=== PATIENT | female | born 1955 | race Caucasian/White ===

== ENCOUNTER 2024-04-06 10:02 | Emergency (ER) | payer MEDICARE, OTHER, SELFPAY ==
[2024-04-06 10:27] VITALS: BMI 32.6
[2024-04-06 10:31] VITALS: BP 114/48
--- NOTE | 2024-04-06 10:39 | ED.MUSCINJ ---
HPI-Injury
General
Chief Complaint: Fall
Time Seen by Provider: 04/06/24 10:23
History of Present Illness-Injury
Initial Injury comments:
Patient presents to the emergency department with left elbow pain and left hand abrasion after fall. She had a mechanical fall where she tripped on the curb and landed onto an outstretched left arm. Complains of pain in the left elbow as well as
scrapes to her left hand. Denies any numbness or tingling in the hand or arm. Denies any pain in shoulder, clavicle. Denies any head strike or loss of consciousness.
Past History
Past History
ED Past Medical History: Other (hypothyroid )
Social History
Tobacco: Non-smoker
Personal:
Living: with family
Employment: Employed
Phy Exam
Physical Exam
Physical Exam:
General: No acute distress
Head: NCAT
Neck, Normal in appearance, no swelling
Respiratory: No Respiratory distress
Abdomen: No distension
Ext: Tenderness throughout left elbow, limited range of motion, no gross deformity. No skin breakdown. She has superficial abrasions to the left hand but no bony tenderness.. Full range of motion of wrist and extremity without pain.
Neuro: BLAIR, AOx4
Psych: Normal affect
Skin: Normal color
Injury Course
Orders/Labs/Results
Orders:
Orders
04/06/24 10:37
Acetaminophen [Tylenol] 1,000 mg PO NOW STA
Oxycodone [Roxicodone] 5 mg PO NOW STA
CR Elbow - Left Min 2 View Urgent
Reason For Exam: trauma
04/06/24 10:38
Ondansetron Injectable [Zofran] 4 mg IV NOW STA
04/06/24 11:24
Sling [Braces/Immobilizers] As Directed
Type of Brace/Immobilizer: Sling
Location for Brace/Immobilizer: L arm
04/06/24 14:06
Oxycodone [Roxicodone] 5 mg PO NOW STA
04/06/24 16:00
Bacitracin Zinc [Bacitracin Ointment] See Dose Instructions TOPICAL TID
*Critical Care Note
Total Time (30-74mins, 75-104mins- exclusive of procedures): Not Applicable
ED Attending Note
-
Portions of this chart may have been created with voice recognition software.� Occasional wrong word or��sound alike� substitutions may have occurred due to the inherent limitations of voice recognition software.
Discharge Plan
Departure
Patient Disposition: Home (Routine Discharge)
Date of Disposition: 04/06/24
Time of Disposition: 14:06
Patient with high blood pressure during this ER visit?: No
Discharge Problem:
Closed fracture of radial head
Instructions: Elbow Fracture, Adult ED
Prescriptions:
New
oxycodone 5 mg capsule
5 mg PO BID PRN (Reason: Pain) Qty: 7 0RF
No Action
levothyroxine 100 MCG tablet
1 tab PO DAILY
Referrals:
Dwayne Lane MD [Active] - (radial head fracture)
Barbara Bergeron CRNP [Family Provider] -
Activity Restrictions/Additional Instructions:
Please follow-up with the orthopedist in the next few days. Keep the sling on until your visit. Ice and elevate the elbow. Ibuprofen and Tylenol for pain control. Use the oxycodone only as needed if the ibuprofen and Tylenol are not working
Interventions
Interventions:
*Risk Screen - Suicide Last Done: 04/06/24 10:27
*General Assessment Last Done: 04/06/24 10:27
*Neglect/Abuse Screening Last Done: 04/06/24 10:27
ED- Fall Risk Assessment Last Done: 04/06/24 10:27
*ED COVID-19 Vaccine History Last Done: 04/06/24 10:27
*Nursing Disposition Last Done: 04/06/24 14:32
ED-Musculoskeletal Assessment Last Done: 04/06/24 10:27
ED- Neurological Assessment Last Done: 04/06/24 10:27
ED-Skin Assessment Last Done: 04/06/24 10:27
Discharge Date and Time
Discharge Date/Time: 04/06/24 14:33
Print Language: OCCITAN
[2024-04-06] MEDS: ZOFRAN 4 MG IV (10:43)
[2024-04-06] MEDS: TYLENOL 1000 MG PO (10:43)
[2024-04-06] MEDS: ROXICODONE 5 MG PO ×2 (10:44→14:08)
[2024-04-06 14:13] VITALS: BP 144/78
== END 2024-04-06 14:33 | disposition home or self-care (01) ==
LOC: EMR 10:02
PROVIDERS: EMERGENCY PHYSICIAN Emergency Medicine; FAMILY PHYSICIAN Nurse Practitioner Adult Health
DX: S60.512A Abrasion of left hand, initial encounter (principal); S52.122A Displaced fracture of head of left radius, initial encounter for closed fracture; W01.0XXA Fall on same level from slipping, tripping and stumbling without subsequent striking against object, initial encounter
CPT/HCPCS: 99284; 96374; 73070

== ENCOUNTER → 2024-04-08 09:02 | Outpatient (REF) | payer MEDICARE, OTHER, SELFPAY | LOC: RAD 09:02 | PROVIDERS: ATTENDING PHYSICIAN Physician Assistant; FAMILY PHYSICIAN Nurse Practitioner Adult Health | DX: S52.132A Displaced fracture of neck of left radius, initial encounter for closed fracture (principal) | CPT/HCPCS: 73200 ==

== ENCOUNTER → 2024-04-10 09:08 | Outpatient (REF) | payer MEDICARE, OTHER, SELFPAY ==
[2024-04-10 10:43] LABS: Blood Urea Nitrogen 15 mg/dl (7-17); Calcium 9.5 mg/dl (8.4-10.2); Carbon Dioxide 26 mmol/L (22-30); Chloride 101 mmol/L (98-107); Glucose 99 mg/dl (70-99); Potassium 4.2 mmol/L (3.5-5.1); Sodium 140 mmol/L (135-145); eGFR > 60.00
== END ==
LOC: RCS 09:08
PROVIDERS: ATTENDING PHYSICIAN Orthopaedic Surgery; FAMILY PHYSICIAN Nurse Practitioner Adult Health
DX: Z01.818 Encounter for other preprocedural examination (principal)
CPT/HCPCS: 36415; 80048; 93005

== ENCOUNTER → 2024-07-05 12:54 | Outpatient (REF) | payer MEDICARE, OTHER, SELFPAY | LOC: PAVMRI 12:54 | PROVIDERS: ATTENDING PHYSICIAN Nurse Practitioner Adult Health | DX: R47.1 Dysarthria and anarthria (principal) | CPT/HCPCS: 70553; A9575 ==

== ENCOUNTER 2024-09-13 06:13 | Outpatient (RCR) | payer MEDICARE, OTHER, SELFPAY | END 2024-09-13 23:59 | disposition home or self-care (01) | LOC: RST 06:13 | PROVIDERS: ATTENDING PHYSICIAN Nurse Practitioner; FAMILY PHYSICIAN Nurse Practitioner Adult Health | DX: G31.01 Pick's disease (principal); F02.80 Dementia in other diseases classified elsewhere, unspecified severity, without behavioral disturbance, psychotic disturbance, mood disturbance, and anxiety; R47.01 Aphasia | CPT/HCPCS: 92507; 92523 ==

== ENCOUNTER 2024-10-16 11:37 | Outpatient (RCR) | payer MEDICARE, OTHER, SELFPAY | END 2024-10-16 23:59 | disposition home or self-care (01) | LOC: RST 11:37 | PROVIDERS: ATTENDING PHYSICIAN Nurse Practitioner; FAMILY PHYSICIAN Nurse Practitioner Adult Health | DX: G31.01 Pick's disease (principal); F02.80 Dementia in other diseases classified elsewhere, unspecified severity, without behavioral disturbance, psychotic disturbance, mood disturbance, and anxiety; R47.01 Aphasia | CPT/HCPCS: 92507 ==

== ENCOUNTER → 2024-10-31 12:11 | Outpatient (REF) | payer MEDICARE, OTHER, SELFPAY ==
[2024-10-31 14:02] LABS: % Eosinophils 4.3 % (0-6); % Immature Granulocytes 0.4 % (0-0.5); % Lymphocytes 25.3 % (20.5-51.1); % Monocytes 6.4 % (1.7-9.3); % Neutrophils 62.6 % (42.2-75.2); Absolute Basophils 0.1 10^3/uL (0-0.2); Absolute Eosinophils 0.3 10^3/uL (0-0.7); Absolute Lymphocytes 1.9 10^3/uL (1.2-3.4); Absolute Monocytes 0.5 10^3/uL (0.1-0.6); Absolute Neutrophils 4.8 10^3/uL (1.4-6.5); Hematocrit 42.2 % (37.0-47.0); Hemoglobin 13.8 g/dL (12.0-16.0); Mean Corp Hgb Conc. 32.7 g/dL (33.0-37.0); Mean Corpuscular Hgb 31.4 pg (27.0-31.0); Mean Corpuscular Volume 96.1 fL (81.0-99.0); Mean Platelet Volume 9.6 fL (7.4-10.4); Nucleated Red Blood Cells % 0 %; Platelet Count 270 10^3/uL (130-400); Red Blood Cell Count 4.39 10^6/uL (4.20-5.40); Red Cell Dist. Width 12.4 % (11.5-14.5); White Blood Cell Count 7.6 10^3/uL (4.8-10.8)
[2024-10-31 14:32] LABS: Blood Urea Nitrogen 24 mg/dl (7-17); Calcium 9.3 mg/dl (8.4-10.2); Carbon Dioxide 28 mmol/L (22-30); Chloride 107 mmol/L (98-107); Glucose 97 mg/dl (70-99); Potassium 4.3 mmol/L (3.5-5.1); Sodium 141 mmol/L (135-145); eGFR > 60.00
== END ==
LOC: REG 12:11
PROVIDERS: ATTENDING PHYSICIAN Specialist; FAMILY PHYSICIAN Nurse Practitioner Adult Health
DX: Z79.899 Other long term (current) drug therapy (principal); Z01.818 Encounter for other preprocedural examination
CPT/HCPCS: 36415; 80048; 85025; 93005

== ENCOUNTER 2024-11-15 09:10 | Outpatient (RCR) | payer MEDICARE, OTHER, SELFPAY | END 2024-11-15 23:59 | disposition home or self-care (01) | LOC: RST 09:10 | PROVIDERS: ATTENDING PHYSICIAN Nurse Practitioner; FAMILY PHYSICIAN Nurse Practitioner Adult Health | DX: R47.01 Aphasia (principal); G31.01 Pick's disease (principal); F02.80 Dementia in other diseases classified elsewhere, unspecified severity, without behavioral disturbance, psychotic disturbance, mood disturbance, and anxiety | CPT/HCPCS: 92507 ==

== ENCOUNTER 2024-11-24 14:00 | Outpatient (RCR) | payer MEDICARE, OTHER, SELFPAY | END 2024-11-24 23:59 | disposition home or self-care (01) | LOC: RST 14:00 | PROVIDERS: ATTENDING PHYSICIAN Nurse Practitioner; FAMILY PHYSICIAN Nurse Practitioner Adult Health | DX: R47.01 Aphasia (principal); G31.01 Pick's disease; F02.80 Dementia in other diseases classified elsewhere, unspecified severity, without behavioral disturbance, psychotic disturbance, mood disturbance, and anxiety | CPT/HCPCS: 92507 ==

== ENCOUNTER 2024-11-28 13:02 | Outpatient (RCR) | payer MEDICARE, OTHER, SELFPAY | END 2024-11-28 23:59 | disposition home or self-care (01) | LOC: RPT 13:02 | PROVIDERS: ATTENDING PHYSICIAN Specialist; FAMILY PHYSICIAN Nurse Practitioner Adult Health | DX: Z47.1 Aftercare following joint replacement surgery (principal); Z73.6 Limitation of activities due to disability; R26.89 Other abnormalities of gait and mobility; M25.562 Pain in left knee; M62.81 Muscle weakness (generalized); Z96.652 Presence of left artificial knee joint | CPT/HCPCS: 97010; 97110; 97140; 97162 ==

== ENCOUNTER 2024-11-29 07:31 | Inpatient (IN) | payer MEDICARE, OTHER, SELFPAY ==
[2024-11-29] VITALS (12 sets, daily range): BP systolic 135–164; BP diastolic 56–78; BMI 37.2
[2024-11-29 04:18] LABS: % Basophils 0.4 % (0-2); % Eosinophils 1.6 % (0-6); % Immature Granulocytes 0.7 % (0-0.5); % Lymphocytes 6.1 % (20.5-51.1); % Monocytes 9.1 % (1.7-9.3); % Neutrophils 82.1 % (42.2-75.2); Absolute Eosinophils 0.1 10^3/uL (0-0.7); Absolute Immature Granulocytes 0.1 10^3/uL (0-0.05); Absolute Lymphocytes 0.5 10^3/uL (1.2-3.4); Absolute Monocytes 0.8 10^3/uL (0.1-0.6); Absolute Neutrophils 6.8 10^3/uL (1.4-6.5); Hematocrit 33.5 % (37.0-47.0); Hemoglobin 11.2 g/dL (12.0-16.0); Mean Corp Hgb Conc. 33.4 g/dL (33.0-37.0); Mean Corpuscular Hgb 32.1 pg (27.0-31.0); Mean Platelet Volume 8.8 fL (7.4-10.4); Nucleated Red Blood Cells % 0 %; Platelet Count 262 10^3/uL (130-400); Red Blood Cell Count 3.49 10^6/uL (4.20-5.40); Red Cell Dist. Width 13.3 % (11.5-14.5); White Blood Cell Count 8.2 10^3/uL (4.8-10.8)
[2024-11-29 04:39] LABS: Lactic Acid 0.8 mmol/L (0.7-2.0)
[2024-11-29 04:40] LABS: ALT (SGPT) 31 U/L (0-35); AST (SGOT) 32 U/L (14-36); Albumin 4.1 g/dl (3.5-5.0); Alkaline Phosphatase 63 U/L (38-126); Blood Urea Nitrogen 20 mg/dl (7-17); Calcium 9.2 mg/dl (8.4-10.2); Carbon Dioxide 27 mmol/L (22-30); Chloride 105 mmol/L (98-107); Estimated Creatinine Clearance 74 ml/min; Glucose 116 mg/dl (70-99); Potassium 4.5 mmol/L (3.5-5.1); Sodium 138 mmol/L (135-145); Total Protein 6.8 g/dl (6.3-8.2); eGFR > 60.00
[2024-11-29 05:36] LABS: Urine Albumin 1+ (Neg - Trace); Urine Bilirubin Negative (Negative); Urine Character Clear (Clear); Urine Color Yellow; Urine Glucose Negative (Negative); Urine Ketone Negative (Negative); Urine Leukocyte Negative (Negative); Urine Nitrite Negative (Negative); Urine Occult Blood Negative (Negative); Urine Urobilinogen Negative (Neg - 1+)
--- NOTE | 2024-11-29 06:23 | ED.GENMED ---
History of Present Illness
General
Chief Complaint: Fall
Source: patient
Time Seen by Provider: 11/29/24 03:51
History of Present Illness
History of Present Illness:
Note:
CHIEF COMPLAINT(S)
Postoperative weakness and fever.
HISTORY OF PRESENT ILLNESS
The patient is a 69-year-old female with a history of hypertension who presented with weakness and a fever of 100.8�F. The onset of symptoms was progressive, as described by the while the patient was out of the room. The patient attempted to
go to a facility for some relief without success. She had been taking aspirin, but it was discontinued a couple of days ago due to pain issues. EMS brought the patient in, and a urine sample was collected for analysis. Patient recently had left
knee replacement surgery by Dr. De La Fuente.
ADDITIONAL HISTORY OBTAINED FROM SOURCES OTHER THAN THE PATIENT
The patients reported that the patient had experienced progressive weakness and fever. The patients attempts to seek care were interrupted by worsening symptoms.
CHRONIC MEDICAL CONDITIONS SIGNIFICANTLY AFFECTING CARE
Hypertension.
PHYSICAL EXAM
- General: Appears weak.
- Nursing notes reviewed and vital signs reviewed.
PROBLEM LIST
- Acute: Fever, Weakness
- Chronic: Hypertension
PLAN
An examination will be conducted upon the patients return.
DIFFERENTIAL DIAGNOSIS
The Differential Diagnosis includes, in no particular order and is not limited to:
1. Infection (e.g., urinary tract infection, pneumonia)
2. Medication side effect
3. Hypothyroidism
4. Electrolyte imbalance
5. Anemia
6. Dehydration
7. Cardiac issues (e.g., heart failure, myocardial infarction)
8. Neurological disorder (e.g., stroke, transient ischemic attack)
9. Sepsis
10. Rheumatologic disorder (e.g., polymyalgia rheumatica)
CARE-UPDATE
11/29/24 - 06:07
CT of the head reveals no hemorrhage or acute trauma. Evidence of chronic microvascular disease was noted. CT of the face indicates no acute osseous trauma and minimal paranasal sinus disease. Mastoid air cells and orbital structures are clear, but
there is a left nasal septal deviation. Discussion concluded that the patient should be admitted due to postoperative weakness.
Disposition:
DIAGNOSIS
- Syncope (ICD-10 code: R55)
SUMMARY OF ENCOUNTER
The patient is a 69-year-old female who was seen in the emergency department following a syncope episode and fall. She underwent left knee replacement surgery one week ago by Dr. Dimitri Ash. Her recovery was reportedly going well until the
last three days when she experienced increasing weakness. Tonight, as she attempted to go to the bathroom, she was unable to get up on her own, even with her husbands assistance, and subsequently fell face first, striking her face on a desk. Her
reported multiple syncope episodes over the last three days, which are more frequent and severe than previously experienced. The patient has a history of syncope episodes and early-stage dementia.
CONSIDERATION FOR ADMISSION
Given the increased frequency and severity of the syncope episodes, the patient is to be admitted to the hospital for continued observation.
ASSESSMENT
The patient experienced syncope episodes with a fall after recent knee replacement surgery, likely contributing to her current condition. Her symptoms have worsened, with increasing weakness and inability to perform activities of daily living
independently.
INDEPENDENT INTERPRETATION OF TESTS
CT of the head shows no hemorrhage or acute trauma but reveals evidence of chronic microvascular disease.
CT of the face shows no acute osseous trauma and minimal paranasal sinus disease, with clear mastoid air cells and orbital structures.
MEDICAL DECISION MAKING
Number and Complexity of Problems Addressed:
The patient presented with acute and chronic concerns, including syncope, postoperative weakness, and a fall. Her condition necessitated consideration for hospital admission due to increased syncope frequency and associated risks.
Data:
The evaluation included CT imaging to rule out acute intracranial or facial trauma. Potential causes for syncope, such as infection, electrolyte imbalance, or cardiac issues, remain under consideration.
Risk:
Hospitalization was considered due to the heightened risk of complications from frequent syncope episodes. The severity and progression of the patients symptoms, recent surgeries, and potential impact on her safety and recovery were davidson factors in
decision-making.
Past History
Past History
ED Past Medical History: Other (hypothyroid )
Social History
Tobacco: Non-smoker
Personal:
Living: with family
Employment: Employed
Phy Exam
General Physical Exam
General Presentation: well appearing and mild distress
General age: appears stated age
General Skin: warm and dry
General Habitus: normal
General Mental: alert
General Hydration: appears well hydrated
General Chronic Disability: contractures
Cardiovascular Exam
Cardiovascular Exam: regular rate/rhythm
Pulmonary Exam
Pulmonary Exam: lungs clear
Neurological Exam
Neurological Exam: alert and oriented x3
Musculoskeletal Exam
Musculoskeletal Exam: full ROM
Skin Exam
Skin Exam: normal color and warm/dry
Sepsis
Sepsis Screening
Sepsis Assessment: Sepsis Ruled Out
Sepsis Screen
Sepsis Screen: Sepsis Ruled Out
Date: 11/29/24
Time: 06:41
Course
Orders/Labs/Results
Orders:
Orders
11/29/24 03:46
Electrocardiogram (*1) Urgent
Reason for Study: Other
Other Reason for Exam: Possible Sepsis
Cardiac Monitoring- Treatment ONCE
EKG- Treatment ONCE
CR Chest - 2 Views Urgent
Comment:
Reason For Exam: suspected infection
Pulse Ox/cont/shift [RESP] Urgent
Quantity: 1
Special Instructions: CONTINUOUS
11/29/24 03:51
CT Head W/o Iv Contrast Urgent
Comment:
Reason For Exam: fall
11/29/24 03:59
CR Hand - Right Min 3 Views Urgent
Comment:
Reason For Exam: fall tonight pain and swelling right 3rd 4th finge
11/29/24 04:01
Complete Blood Count/With Diff Urgent
Lactic Acid Q4H
Comment: ON ICE, CANCEL 2ND ORDER IF FIRST LACTIC ACID LEVEL <2
11/29/24 04:02
Comprehensive Metabolic Panel Urgent
Blood Culture Q20M
SHARA Source: Blood/Venous
Specimen Description:
Comment: Urgent from separate sites. If patient screens positive for possible sepsis
11/29/24 04:28
CT Facial Bones W/o Iv Contras Urgent
Comment:
Reason For Exam: fall
11/29/24 04:29
Knee, Left 4 or More Views [CR Knee - Left 4 Or More View*] Urgent
Comment:
Reason For Exam: fell, recent knee replacement, inc pain
11/29/24 04:30
Blood Culture Q20M
SHARA Source: Blood/Venous
Specimen Description:
Comment: Urgent from separate sites. If patient screens positive for possible sepsis
11/29/24 05:11
Urinalysis Reflex To Culture Urgent
Date Specimen was Collected: 11/29/24
Time Specimen was Collected: 04:55
Urine Microscopic Reflex Cult Urgent
Abnormal Lab Results
11/29/24 11/29/24 11/29/24
04:01 04:02 05:11
RBC 3.49 L 10^6/uL
(4.20-5.40)
Hgb 11.2 L g/dL
(12.0-16.0)
Hct 33.5 L %
(37.0-47.0)
MCH 32.1 H pg
(27.0-31.0)
Abs Immat Gran (auto) 0.1 H 10^3/uL
(0-0.05)
Absolute Neuts (auto) 6.8 H 10^3/uL
(1.4-6.5)
Absolute Lymphs (auto) 0.5 L 10^3/uL
(1.2-3.4)
Absolute Monos (auto) 0.8 H 10^3/uL
(0.1-0.6)
Immature Gran % 0.7 H %
(0-0.5)
Neutrophils % 82.1 H %
(42.2-75.2)
Lymphocytes % 6.1 L %
(20.5-51.1)
BUN 20 H mg/dl
(7-17)
Glucose 116 H mg/dl
(70-99)
Urine Albumin (Reflex) 1+ A
(Neg - Trace)
11/29/24 04:01
11/29/24 04:02
Vital Signs
Initial and Last Documented VS:
Initial Vital Signs
Resp BP
12 162/73
11/29/24 03:28 11/29/24 03:28
Last Documented Vital Signs
Temp Pulse Resp BP Pulse Ox
99.8 F 88 22 151/65 95
11/29/24 05:20 11/29/24 04:00 11/29/24 04:00 11/29/24 04:00 11/29/24 04:00
*Critical Care Note
Total Time (30-74mins, 75-104mins- exclusive of procedures): Not Applicable
ED Attending Note
-
Portions of this chart may have been created with voice recognition software.� Occasional wrong word or��sound alike� substitutions may have occurred due to the inherent limitations of voice recognition software.
Discharge Plan
Departure
Patient Disposition: Admit
Date of Disposition: 11/29/24
Time of Disposition: 06:40
Admit to: Med/Surg
Presentation/result/management discussed w/ accepting MD/DO: Hospitalist
Condition: Fair
Discharge Problem:
Weakness, Syncope and collapse, Contusion of face
Prescriptions:
No Action
oxycodone 5 mg capsule
5 mg PO BID PRN (Reason: Pain) Qty: 7 0RF
losartan 50 mg Tablet
50 mg PO BID
donepezil 5 mg Tablet
5 mg PO DAILY
pravastatin 40 mg Tablet
40 mg PO DAILY
levothyroxine 125 mcg Tablet
125 mcg PO DAILY
hydralazine 50 mg Tablet
50 mg PO BID
furosemide 20 mg Tablet
20 mg PO DAILY
metoprolol tartrate 25 mg Tablet
25 mg PO BID
Referrals:
Barbara Bergeron CRNP [Family Provider, Internal Medicine]
Interventions
Interventions:
*Risk Screen - Suicide Last Done: 11/29/24 03:33
*General Assessment Last Done: 11/29/24 03:33
*Neglect/Abuse Screening Last Done: 11/29/24 03:33
*ED- Fall Risk Assessment Last Done: 11/29/24 03:33
*ED COVID-19 Vaccine History Last Done: 11/29/24 03:33
Discharge Date and Time
Print Language: PRYDEINIG
--- NOTE | 2024-11-29 06:25 | HPS.HSE ---
Family Physician
-
Family Physician: JACK Meredith
Chief Complaint
-
Fall
History of Present Illness
This is a 69-year-old female with past medical history of hypothyroidism, hyperlipidemia, hypertension who is approximately 1 week status post a left total knee arthroplasty presenting to the emergency department following a mechanical fall.
Patient has been home for 1 week status post left total knee arthroplasty on November 21 when over the last 3 days she has been getting weaker. Tonight spouse reports that he could not get her up to the bathroom and she fell striking her face on a desk.
She had an episode of passing out while sitting in a chair 3 days ago as well. However she has been having passing out episodes for over 50 years. She has was recently diagnosed with early dementia. She reports pain in the right 3rd and 4th
fingers from the fall edvin as well as left knee pain. Spouse reports that this pain is new and she has not been having pain in the left knee not requiring pain medications.
She denies any urinary symptoms. She has no fevers or chills. There has been no nausea vomiting or diarrhea. She has no palpitations or lightheadedness or dizziness. No chest pain. She has no prior history of coronary artery disease arrhythmias
or congestive heart failure.
She did arrive in the emergency department with a temp of 100.8 and has a mild nonproductive cough. Spouse reports no sudden increases in swelling in her lower extremities. She denies any chest tightness or pain. She denies any pleuritic
symptoms. She has been weaned off of prednisone and oxycodone.
As well as reports history of episodes of syncope in the past by few years but not to within a 3-day interval. No history of seizures. Patient seems to be unaware of the syncopal episodes but seems to have lasted seconds before
resolution.
In the emergency department the patient was afebrile, blood pressure was 150/65 with a pulse with 88 and she was at 95% on room air.
ECG shows normal sinus rhythm at a rate of 91 with right bundle branch block. Unchanged from prior. UA was negative.
CT of the head was negative for any acute intracranial process. CT facial bones shows no acute traumatic fractures. Skeletal x-ray survey shows no acute trauma.
CBC was unremarkable.
Electrolytes were all within normal limits.
BUN and creatinine were normal with a normal glucose.
Medical History
Past Medical History
Past Medical History: Reports Other
Additional Past Medical History:
Hyperlipidemia
Allergic rhinitis
Hypothyroidism
Spinal stenosis
Herniated L5-S1 disc
Hypertension
Past Surgical History: Reports Gynocological and Other
Additional Past Surgical History:
Bilateral tubal ligation
Left radial head replacement 04/14/2024
Left total knee arthroplasty
Social History
Tobacco: Non-smoker
Alcohol: None
Drug: None
Living: With Family
Family History
Family History: Not pertinent
Allergies / Home Medications
Allergies reflects when Allergies were last updated in [facility].
Home Medications with original date entered in [facility]
Allergy/Medication List:
Allergies
Allergy/AdvReac Type Severity Reaction Status Date / Time
morphine AdvReac Vomiting Verified 11/29/24 03:32
Home Medications
oxycodone 5 mg capsule 5 mg PO BID PRN Pain #7 caps 04/06/24
donepezil 5 mg tablet 5 mg PO DAILY 11/29/24
furosemide 20 mg tablet 20 mg PO DAILY 11/29/24
hydralazine 50 mg tablet 50 mg PO BID 11/29/24
levothyroxine 125 mcg tablet 125 mcg PO DAILY 11/29/24
losartan 50 mg tablet 50 mg PO BID 11/29/24
metoprolol tartrate 25 mg tablet 25 mg PO BID 11/29/24
pravastatin 40 mg tablet 40 mg PO DAILY 11/29/24
Review of Systems
-
Constitutional: Reports No Symptoms
EENT: Reports No Symptoms
Respiratory: Reports No Symptoms
Cardiac: Reports No Symptoms
Abdomen/GI: Reports No Symptoms
: Reports No Symptoms
Musculoskeletal: Reports Joint Pain
Skin: Reports No Symptoms
Neurological: Reports Weakness
Endocrine: Reports No Symptoms
Hematologic/Lymphatic: Reports No Symptoms
Psych: Reports No Symptoms
Physical Exam
Vital Signs
Vital Signs
Temp Pulse Resp BP Pulse Ox
99.8 F 88 22 151/65 95
11/29/24 05:20 11/29/24 04:00 11/29/24 04:00 11/29/24 04:00 11/29/24 04:00
Physical Exam
General: Well Developed, Well Nourished and No Apparent Distress
HEENT: NormoCephalic, Moist mucous membranes and Atraumatic
Respiratory: Clear
Cardiac: S1/S2 and Regular Rhythm; No Murmur or Rub
GI: Soft, Non Tender, Non Distended and Normal Bowel Sounds; No Organomegaly
Rectal: Deferred by Provider
Musculoskeletal: No Clubbing, No Cyanosis and No Edema
Skin: No Rash
Neuro: Nonfocal/grossly intact
Laboratory Results
-
11/29/24 04:01
11/29/24 04:02
Laboratory Results
Lactic Acid 0.8 mmol/L (0.7-2.0) 11/29/24 04:01
Lactic Acid Cancelled 11/29/24 04:01
Total Bilirubin 1.0 mg/dl (0.2-1.3) 11/29/24 04:02
AST 32 U/L (14-36) 11/29/24 04:02
ALT 31 U/L (0-35) 11/29/24 04:02
Alkaline Phosphatase 63 U/L (38-126) 11/29/24 04:02
Data Reviewed
-
Diagnostic Radiology: Image Personally Visualized and interpreted and Report Reviewed by me
CT Scan: Report Reviewed by me
Medical Tests (Nuc Med, Echo, EKG etc): Image Personally Visualized and interpreted
Lab Data: Labs Reviewed by me
Old Records: Reviewed
Impression/Plan
-
IMPRESSION:
69-year-old female with past medical history of hypothyroid, hypertension, hyperlipidemia, recent diagnosis of mild dementia who is 1 week status post left total knee arthroplasty presents to the emergency department with a fall at home. This is in
the setting of to syncopal/presyncopal episodes within a 3-day interval. She has a fever to 100.8. She has a mild cough. Otherwise the knee appears intact without swelling erythema or tenderness to palpation. Wound without any dehiscence. She
has expected left lower extremity swelling without obvious cellulitis. Right lower extremity shows no interval abnormalities. Lungs are clear to auscultation. Chest x-ray is clear. ECG is sinus with right bundle unchanged. UA is negative. She
does not have leukocytosis. Labs are all within normal limits.
PLAN:
Fever - Source unclear. Infectious vs non-infectious. Xray clear. U/A neg. L leg is swollen but no obvious cellulitis or effusion. Mildly worsened pain compared to 3 days ago. Tmax 100.8 on ED arrival, spontenously defervesced in 2 hours.
- admit to telemetry
- blood cultures sent
- getting viral panel
- esr, crp, procalcitonin
- empiric vancomycin/ceftriaxone x1, given spontanous defervescence and no tachycardia, will hol dof further abx
- mrsa swab
- If recurrent fever, consult ID
- rule out dvt with RLE u/s and d-dimer
Weakness/Syncope - Possibly from acute infectious process versus cardiac or neurocardiogenic.
- telemetry
- orthostatic vs
- rule out blood clot
- echo
- PT eval
s/p Knee replacement
- continue dvt ppx with lovenox sq for now
- pain control
HTN
- continue losartan and metoprolol with hold parameters
- lasix with hold parameters
Code satus - full code
[2024-11-29 06:26] LABS: Urine Squamous Cell >30 /LPF (Few)
[2024-11-29 06:29] LABS: Urine White Cell 0-2 /HPF (0-5)
[2024-11-29] MEDS: STERILE WATER FOR INJECTION 10 ML IV (07:18)
[2024-11-29] MEDS: ROCEPHIN 1000 MG IV (07:18)
[2024-11-29 07:28] LABS: Erythrocyte Sed Rate 18 mm/hour (0-20)
[2024-11-29 07:30] LABS: INR 0.99; PT 13.4 Sec (11.4-14.6)
[2024-11-29 07:33] LABS: D-Dimer 2.86 ug/mlFEU (0.00-0.50)
[2024-11-29 07:51] LABS: Procalcitonin < 0.05 ng/ml (0.0-0.25)
[2024-11-29 07:52] LABS: Troponin I < 0.012 ng/ml
[2024-11-29 07:54] LABS: COVID-19 Antigen Negative (Negative)
[2024-11-29] MEDS: VANCOCIN 540 MG IV (09:31)
[2024-11-29] MEDS: LOPRESSOR 25 MG PO ×2 (10:26→20:40)
[2024-11-29] MEDS: ASPIRIN 325 MG PO (10:26)
[2024-11-29] MEDS: APRESOLINE 50 MG PO ×2 (10:26→20:39)
[2024-11-29] MEDS: COZAAR 50 MG PO ×2 (10:26→20:39)
[2024-11-29] MEDS: SYNTHROID 125 MCG PO (10:26)
[2024-11-29] MEDS: PRAVACHOL 40 MG PO (10:29)
[2024-11-29] MEDS: ARICEPT 5 MG PO (10:29)
[2024-11-29] MEDS: LASIX 20 MG PO (10:29)
[2024-11-29 11:30] LABS: Cortisol, Random 16.3 ug/dl
[2024-11-29] MEDS: TYLENOL 650 MG PO (17:36)
[2024-11-29] MEDS: LOVENOX 40 MG SC (17:38)
[2024-11-30] VITALS (8 sets, daily range): BP systolic 96–154; BP diastolic 53–74; PULSE 80–96; O2SAT 94; BMI 35.2
[2024-11-30 05:50] LABS: Hematocrit 31.3 % (37.0-47.0); Hemoglobin 10.6 g/dL (12.0-16.0); Mean Corp Hgb Conc. 33.9 g/dL (33.0-37.0); Mean Corpuscular Hgb 32.5 pg (27.0-31.0); Mean Platelet Volume 8.9 fL (7.4-10.4); Platelet Count 234 10^3/uL (130-400); Red Blood Cell Count 3.26 10^6/uL (4.20-5.40); Red Cell Dist. Width 13.4 % (11.5-14.5); White Blood Cell Count 5.1 10^3/uL (4.8-10.8)
[2024-11-30 06:07] LABS: Blood Urea Nitrogen 17 mg/dl (7-17); Calcium 8.6 mg/dl (8.4-10.2); Carbon Dioxide 27 mmol/L (22-30); Chloride 104 mmol/L (98-107); Estimated Creatinine Clearance 72 ml/min; Glucose 126 mg/dl (70-99); Potassium 3.8 mmol/L (3.5-5.1); Sodium 136 mmol/L (135-145); eGFR > 60.00
[2024-11-30] MEDS: SYNTHROID 125 MCG PO (06:15)
[2024-11-30 06:36] LABS: TSH 1.25 uIU/ml (0.47-4.68)
[2024-11-30] MEDS: APRESOLINE 50 MG PO ×2 (07:54→21:15)
[2024-11-30] MEDS: ARICEPT 5 MG PO (07:55)
[2024-11-30] MEDS: COZAAR 50 MG PO ×2 (07:55→21:15)
[2024-11-30] MEDS: PRAVACHOL 40 MG PO (07:55)
[2024-11-30] MEDS: LOPRESSOR 25 MG PO (07:55)
[2024-11-30] MEDS: LASIX 20 MG PO (07:55)
--- NOTE | 2024-11-30 11:52 | CON.CAR ---
Addendum entered and electronically signed by Maximiliano Rhodes MD 11/30/24 14:24:
I saw and examined the patient.
The CONVERTING OPERATOR's note was reviewed and I agree with the note.
69-year-old woman with a history of right bundle branch block, hypertension, dementia, hypercholesterolemia and hypothyroidism who underwent right TKA 9 days ago and now presents with syncope. Apparently patient was doing okay in her recovery the
night prior to presentation she got up to go to the bathroom had walked into the bathroom and apparently had a syncopal episode. No clear prodrome. Episode occurred before she went to the bathroom.. The following night the same thing happened.
Patient has an abrasion on her face from her fall. Currently comfortable with no complaints of chest pain or shortness of breath denies having recent episodes of lightheadedness or dizziness. She has a distant history of syncope neither the
patient or her can describe the episodes they report them as being random episodes that occur once every 5 years over the last 50 years she has been . Patient is on metoprolol which is currently being held. On telemetry she had
periods of bradycardia with suspected Mobitz 2 second-degree AV block. In addition there was a short run of NSVT which was asymptomatic and a short run of SVT.
.
- Syncope. With evidence of bradycardia/second-degree AV block Mobitz 1 and right bundle branch block concerned that patient's episodes are related to bradycardia arrhythmias. Would agree with holding metoprolol but ultimately I think patient
would benefit from metoprolol considering presence of SVT and NSVT on telemetry. Considering all the issues above would recommend a pacemaker. I did review issues with the patient and her and also explained there can be other causes for
syncope that will not be treated by pacemaker. Patient had low-grade temp of 100.8 this admission. Will need to clarify that there is not an active infection prior to pacer implantation.
- Continue to hold metoprolol
- Monitor on monitor worker
-Pending cultures
-Case reviewed with EP. Tentative plan for pacemaker implant tomorrow. Will need to review temperatures and cultures prior to proceeding.
-
Original Note:
Consultation
Consultation Request
Date/Time Consultation Requested: 11/30/24 1131
Date/Time Consultation Performed: 11/30/24 1135
Requesting Provider: Dr. Cabrera
Performing Provider: Marysol SANTIAGO for Dr. Rhodes
Reason for Consultation: syncope, rhythm issues
Medical History
-
Chief Complaint: syncope
History of Present Illness:
69 y/o female with RBBB, hypertension, dementia, syncope, hypothyroidism, dyslipidemia, and recent TKA (last Wednesday). She is here for evaluation of syncope. Overnight, she was walking to the bathroom and lost consciousness and fell. She struck her
face. A night prior the same thing happened. She denies any preceding symptoms. She has had recurrent syncope she thinks for 50 years- perhaps about 10-20 episodes (estimate from she/her )- it has not been related to any particular activity.
She has never had a medical work-up for it. She is in no distress at the time of my assessment. Tmp was as high as 100.7. Denies chills. prelim blood cx negative. On the monitor, I see short run NSVT and SVT. There is also heart block noted (likely
second degree, type II), but not clear what she was doing at the time. She has not had any syncope here. at bedside.
Past Medical History
Past Medical History: HTN, Hypercholesterolemia, Hypothyroidism and Other (as above)
Social History
Tobacco: Non-Smoker
Alcohol: Occasional
Personal:
Family History
Family History: Other (dad she thinks NC age 56, mom heart issues and pacemaker but at 97)
Allergies / Home Medications
Allergy/AdvReac Type Severity Reaction Status Date / Time
morphine AdvReac Vomiting Verified 11/29/24 03:32
�Medication �Instructions �Recorded �Confirmed �Type
aspirin 325 mg tablet 325 mg PO DAILY Heart 11/29/24 11/29/24 History
Disease/Condition
donepezil 5 mg tablet 5 mg PO DIRECTED Neurological 11/29/24 11/29/24 History
Condition
furosemide 20 mg tablet 20 mg PO DAILY Blood Pressure 11/29/24 11/29/24 History
hydralazine 25 mg tablet 25 mg PO BID Blood Pressure 11/29/24 11/29/24 History
levothyroxine 125 mcg tablet 125 mcg PO DAILY Thyroid 11/29/24 11/29/24 History
losartan 50 mg tablet 50 mg PO BID Blood Pressure 11/29/24 11/29/24 History
metoprolol tartrate 25 mg tablet 25 mg PO BID Blood Pressure 11/29/24 11/29/24 History
oxycodone 5 mg tablet 5 mg PO Q6HPRN PRN severe pains 11/29/24 11/29/24 History
pravastatin 40 mg tablet 40 mg PO DAILY High Cholesterol 11/29/24 11/29/24 History
Review of Systems
-
History Source: Patient
All other systems: Negative unless noted
Neurological: Other (syncope)
Physical Exam
Vital Signs
Temp Pulse Resp BP Pulse Ox
98.2 F 75 18 125/60 95
11/30/24 11:00 11/30/24 11:00 11/30/24 11:00 11/30/24 11:00 11/30/24 11:00
Lab Results
11/30/24 05:09
11/30/24 05:09
Troponin I < 0.012 ng/ml 11/29/24 07:01
Physical Exam
General: Well Developed, Well Nourished and No Apparent Distress
HEENT: Normocephalic and Anicteric
Respiratory: Clear and Non Labored Respirations
Cardiac: Regular Rhythm
Musculoskeletal: No Edema
Skin: Warm, Dry and Other (mesha intact)
Neuro: AO x 3
Psych: Calm
Impression / Plan
-
Syncope:
-patient has long history of syncope, which has not been worked up in the past. However, now on monitor evidence for likely second degree mobitz II heart block. Aricept held. BB has been held. Some brief SVT, NSVT noted. Echo is normal. K+ okay,
mag pending. TSH WNL. She likely needs to be on BB. Will likely benefit from pacemaker; discuss with EP. We discussed risk/benefit of procedure. Continue to follow tele. RBBB is noted.
-otherwise, orthos pending.
Fever:
-abx given in ER
-low grade 100.7
-blood cx prelim negative
-no WBC
-would want to make sure no cocern for infection prior to implanting a PPM
HTN:
-on multiple meds as OP
-monitor
Dementia:
-mild, recent diagnosis
Recent knee replacement
Data Reviewed
-
EKG: Tracing Personally Visualized and interpreted (EKG SR 84 BPM, RBBB)
Ultrasound: Report Reviewed by me (11/29/24: No evidence of deep venous thrombosis of the lower extremities bilaterally.)
Medical Tests (Nuc Med, Echo etc): Report Reviewed by me (echo 11/29/24: LV ejection fraction is 65-70%. No regional wall motion abnormalities are seen. Normal right ventricular size and function. No significant valvular disease. )
Labs: Labs Reviewed by me
--- NOTE | 2024-11-30 13:26 | W.PN.HOSP.TC ---
Today's Communication/Plan
-
Cardiology consult
DC donepezil
Hold beta-noel
Assessment / Plan
Assessment / Plan
IMPRESSION:
69-year-old female with past medical history of hypothyroid, hypertension, hyperlipidemia, recent diagnosis of mild dementia who is 1 week status post left total knee arthroplasty presents to the emergency department with a fall at home. This is in
the setting of to syncopal/presyncopal episodes within a 3-day interval. She has a fever to 100.8. She has a mild cough. Otherwise the knee appears intact without swelling erythema or tenderness to palpation. Wound without any dehiscence. She
has expected left lower extremity swelling without obvious cellulitis. Right lower extremity shows no interval abnormalities. Lungs are clear to auscultation. Chest x-ray is clear. ECG is sinus with right bundle unchanged. UA is negative. She
does not have leukocytosis. Labs are all within normal limits.
PLAN:
Syncope -x 2 since left knee replacement on November 21
Rule out tachybradycardia syndrome
cardiac monitor technician shows 1 episode of heart block which looks like type II and then there are 2 episodes of tachycardia.
Consult cardiology.
DC donepezil which can cause conduction blocks, prolongation of QTc which was the case yesterday on the EKG and now corrected.
Hold beta-noel
Fever - Source unclear. Infectious vs non-infectious. Xray clear. U/A neg. L leg is swollen but no obvious cellulitis or effusion. Mildly worsened pain compared to 3 days ago. Tmax 100.8 on ED arrival, spontenously defervesced in 2 hours.
- None since
- blood cultures sent
-Procalcitonin normal, CRP very minimally elevated above the upper limit of normal
- Hold antibiotics
- If recurrent fever, consult ID
- Ultrasound negative for DVT
s/p Knee replacement
- continue dvt ppx with lovenox sq for now
- pain control
HTN
- continue losartan with hold parameters
- lasix with hold parameters
Code satus - full code
Discussed with cardiology
Discussed with the at bedside
Total time spent on today's encounter was 52 minutes which included time spent in counseling the patient/family regarding diagnosis and treatment plan as listed above, goals of care, and symptom management. Case was discussed with nursing staff,
specialists, and care coordinators/case management. All labs and imaging personally reviewed by me. Remainder the time spent in detailed review of previous records, lab data, imaging, and other medical provider documentation.
Anticipated Discharge: 24 - 48 hours
Subjective/Interval History
-
Date of Service: November 30, 2024
Currently feels back to herself. She had a brief episode of weakness this morning but now better.
She does not remember much of the syncopal events.
at bedside who said 3 days after his surgery she had a syncopal event-she got up in the middle of the night to go to the bathroom and passed out. It happened again yesterday which is kind of repeat-got up to go to the bathroom and passed
out. Brief loss of consciousness. Apparently she had intermittent episodes of this in her life but nothing recent.
No history of cardiac disease
Objective Data
-
Labs:
Laboratory Results
11/30/24
05:09
WBC 5.1
Hgb 10.6 L
Hct 31.3 L
Plt Count 234
Sodium 136
Potassium 3.8
Chloride 104
Carbon Dioxide 27
BUN 17
Creatinine 0.8
Glucose 126 H
Calcium 8.6
Vital Signs:
Vital Signs
Temp Pulse Resp BP Pulse Ox
98.2 F 75 18 125/60 95
11/30/24 11:00 11/30/24 11:00 11/30/24 11:00 11/30/24 11:00 11/30/24 11:00
I&O
11/29/24 11/30/24 12/01/24
06:59 06:59 06:59
Intake Total 1440 / 1440
Balance 1440 / 1440
Review of Systems
-
Respiratory: Denies Trouble Breathing
Cardiac: Denies Chest Pain or Palpitations
Abdomen/GI: Denies Abdominal Pain, Nausea or Vomiting
Neuro: Denies Dizzy
Physical Exam
-
HEENT: Other (Abrasion noted to the tip of the nose from the fall)
Respiratory: Clear to Auscultation and Non Labored Respirations; Negative Accessory Resp Muscle Use
Cardiac: Regular Rhythm; Negative S1/S2 or Murmur
Musculoskeletal: Other (Left knee swollen with periarticular fading hematoma. Denies any pain and has been up to the bathroom without much of pain. [place] are in place and wound is clean.)
Neuro: AO x 3 and No Motor Deficits
Psych: Calm
Data Reviewed
-
Labs: Labs Reviewed by me
[2024-11-30] MEDS: LOVENOX 40 MG SC (17:00)
[2024-12-01] VITALS (13 sets, daily range): BP systolic 83–142; BP diastolic 42–66; PULSE 74–94; O2SAT 95; BMI 35.0
[2024-12-01] MEDS: SYNTHROID 125 MCG PO (05:48)
--- NOTE | 2024-12-01 08:29 | CON.ID ---
Consultation
-
Date/Time Consultation Requested: 11/30/2024 1738
Date/Time Consultation Performed: 12/01/2024 0830
Requesting Provider: Dr. Cabrera
Performing Provider: Dr. Funez
Reason for Consultation: Fever; clearance for PPM
Chief Complaint / Past History
History of Present Illness
Lilly Jones is a 69-year-old female being evaluated in infectious disease consultation at the request of Dr. Cabrera regarding reported fever and need for PPM placement. History is obtained from chart review, along with patient interview.
The patient reports a history of intermittent passing out. She notes that she underwent a left total knee arthroplasty by Dr. De La Fuente on 11/21 at the surgery center. She reports she did well immediately after surgery and has been home for
approximately 1 week. To the admitting physician she reports that she had been getting weaker over the last 3 days, and yesterday she was ambulating with a walker to the bathroom when she fell and struck her face. She also reported an episode of
passing out while sitting in a chair approximately 4 days prior. When her could not get her up off the floor, EMS was called and she was brought to the emergency room. Here she has been evaluated by cardiology, and she was found to have
episodes of bradycardia and second-degree AV block, and is scheduled for a pacemaker this a.m. While she was in the ER she was noted to have a low-grade fever, and now Infectious Diseases is asked to weigh in on clearance for her pacemaker.
She reports no prior fevers that she could feel at home. She denies any current pain and notes that the knee is feeling overall well. She denies any cough or congestion. She denies any dysuria or hematuria.
Past History
Additional Past Medical History:
Hypothyroidism
HLD
Spinal stenosis
Herniated L5-S1 disc
HTN
Additional Past Surgical History:
Tubal ligation
Left radial head replacement (04/14/2024)
Left TKA (11/21/2024)
Allergy History:
morphine Adverse Reaction (Verified 11/29/24 03:32)
Vomiting
Medications Reviewed: Yes
Current Antibiotics:
Vanco / ceftriaxone x1 in ER
Social History
Tobacco: Former Smoker
Alcohol: None
Drug: None
Personal:
Living: With Family
Employment: Retired
Family History
Family History: Not Pertinent
Review of Systems
Vital Signs
Temp Pulse Resp BP Pulse Ox
98.6 F 75 18 121/61 95
12/01/24 07:00 12/01/24 07:00 12/01/24 07:00 12/01/24 07:00 12/01/24 07:00
Physical Exam
Physical Exam
Constitutional: No Acute Distress, Comfortable, Non-toxic and Obese
Head: Normocephalic
Eyes: Pupils Equal, Pupils Round, No Conjunctival Hemorrhage and Sclera Anicteric
Oral: No Thrush and No Ulcers
Cardiovascular: Regular Rate and S1/S2; Negative S3/S4
Pulmonary: Clear; Negative Wheezes, Rales or Rhonchi
Gastrointestinal: Soft, Non Tender, Non Distended, Normal Bowel Sounds, No Rebound and No Guarding
Extremities: Edema and Other (medial left knee area with diffuse ecchymosis); Negative Cyanosis
Wound: Other (Left knee incision clean, dry and intact.)
Neurological: Awake and Alert
Psychological: Calm
.
Lab / Diagnostic Study Results
11/30/24 05:09
11/30/24 05:09
Abs Immat Gran (auto) 0.1 10^3/uL (0-0.05) H 11/29/24 04:01
Absolute Neuts (auto) 6.8 10^3/uL (1.4-6.5) H 11/29/24 04:01
Absolute Lymphs (auto) 0.5 10^3/uL (1.2-3.4) L 11/29/24 04:01
Absolute Monos (auto) 0.8 10^3/uL (0.1-0.6) H 11/29/24 04:01
Absolute Basos (auto) 0.0 10^3/uL (0-0.2) 11/29/24 04:01
Immature Gran % 0.7 % (0-0.5) H 11/29/24 04:01
Neutrophils % 82.1 % (42.2-75.2) H 11/29/24 04:01
Lymphocytes % 6.1 % (20.5-51.1) L 11/29/24 04:01
Monocytes % 9.1 % (1.7-9.3) 11/29/24 04:01
Eosinophils % 1.6 % (0-6) 11/29/24 04:01
Basophils % 0.4 % (0-2) 11/29/24 04:01
ESR 18 mm/hour (0-20) 11/29/24 07:01
PT 13.4 Sec (11.4-14.6) 11/29/24 07:00
INR 0.99 11/29/24 07:00
Lactic Acid 0.8 mmol/L (0.7-2.0) 11/29/24 04:01
Lactic Acid Cancelled 11/29/24 04:01
C-Reactive Protein 15.00 mg/L (0.0-10.00) H 11/29/24 07:01
Procalcitonin < 0.05 ng/ml (0.0-0.25) 11/29/24 07:00
Ur Squamous Epith Cells >30 /LPF (Few) 11/29/24 05:11
Microbiology Results
Micro:
11/29/24 04:30 Blood Culture - Preliminary
Blood/Venous No Growth in 48 hours- Final report to follow
11/29/24 04:02 Blood Culture - Preliminary
Blood/Venous No Growth in 48 hours- Final report to follow
11/29/24 12:34 MRSA Screen - Final
Nose No Methicillin Resistant Staphylococcus aureus isolated.
11/29/24 07:01 Influenza Types A & B (JEANINE) - Final
Nasal Swab Negative for Influenza A & B, NAAT
Negative results must be combined with clinical observations
and patient history.
Nucleic Acid Amplification test (NAAT)performed on the
Gene[employer] platform.
Imaging:
11/30/2024 CT chest: No evidence of pulmonary embolism. No significant abnormalities identified in the chest. Please see full dictation for additional detail.
Assessment / Plan
S/p fall
Fever; resolved
Arrhythmia; for tentative PPM placement today
S/P Left TKA; area looks good
Hypothyroidism
HLD
Spinal stenosis
Herniated L5-S1 disc
HTN
Obesity (BMI ~ 35)
Recommendations:
Blood cultures negative x 48 hours.
MRSA screen negative.
Patient without ongoing fever. White count normal.
Low likelihood of infectious process at present.
No objection from a Infectious Diseases standpoint for PPM placement.
Care Review
Plan reviewed with: Physician (Cardiology)
[2024-12-01] MEDS: PRAVACHOL 40 MG PO (08:34)
[2024-12-01] MEDS: APRESOLINE 50 MG PO ×2 (08:34→20:53)
[2024-12-01] MEDS: COZAAR 50 MG PO ×2 (08:34→20:54)
[2024-12-01] MEDS: LASIX 20 MG PO (08:35)
--- NOTE | 2024-12-01 10:05 | W.PN.UPDATE ---
Update Note
Progress Note Update
3 reasons for sycope
1. Long hx c/w vasovagal syncope
2. PT documented symptomatic orthostatic hypotension and noted that PCP recently increased BP meds
3. Mobitz II Second Degree AV Block with chronic RBBB
A pacemaker is indicated but I also suggest backing off of BP meds and set a more lenient goal of less than 140/90 and increasing exercise
All risks/benefits/alternatives explained to patient and family. All questions answered. Comments above reviewed carefully with patient and family. Signed consent obtained and family agrees with pacemaker.
--- NOTE | 2024-12-01 10:51 | W.PN.HOSP.TC ---
Today's Communication/Plan
-
Pacer today
IVF ordered.
Assessment / Plan
Assessment / Plan
69-year-old female status post left knee arthroplasty 1 week ago presents with a fall at home she had a syncopal/presyncopal episodes and a fever of 100.8. Knee appears intact without any swelling no dehiscence.
CT of the chest-no PE. No pneumonia
Knee x-ray-left knee arthroplasty anatomy position. No dislocation. Possible small suprapatellar effusion
Head CT-no acute abnormality. No facial bone fracture. Minimal chronic paranasal sinus inflammatory changes.
Echo 11/25/2024-EF 65 to 70%. Normal RV size and function.
Patient had an episode today where she was orthostatic with supine blood pressure 140/63 mmHg and standing 83/54. Patient was shaky and nauseous with standing/drop in the blood pressure.
On examination he was in bed no symptoms at this point
Cardiovascular system S1-S2 appreciated
Chest clear to auscultation
Abdomen soft and nontender
No pedal edema
Left knee looks stable no discharge or redness
Please abrasions on the nose and forehead
# Syncope x 2 since knee replacement on November 21, 2024
Tachybradycardia syndrome with heart block
Aricept discontinued
Beta-blockers on hold
For pacemaker
# Low-grade fever
Source unclear
CT chest unremarkable, COVID serology negative and UA unremarkable
Left leg without any evidence of cellulitis
Blood culture sent-negative so far
Procalcitonin normal
Ultrasound without any DVT
Infectious disease consulted- appreciated.
# Status post knee replacement on December 18, 2024
Pain control
PT after pacemaker
DVT prophylaxis-Lovenox
[facility] orthopedics on-call made aware about the patient's admission.
# Anemia likely secondary to acute blood loss postsurgery
# Contusion of face from fall and syncope -no facial bone fracture
# Hypertension-continue losartan
Hold hydralazine
Hold Lasix, beta-blockers as above
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
# Hyperlipidemia-continue statin
# Dementia-Aricept on hold
# History of laminectomy L3-L5
# DVT prophylaxis-Lovenox. Patient was on aspirin 325 mg daily as outpatient. Resume this at discharge
# Full code
Discussed with nursing at bedside
Part of this note was created using voice recognition system. Occasional wrong word or��sound alike� substitutions may have inadvertently occurred due to the inherent limitations of voice recognition software. If noted kindly bring it to my
attention for correction.
Anticipated Discharge: 24 - 48 hours
Subjective/Interval History
-
Date of Service: December 01, 2024
Objective Data
-
Vital Signs:
Vital Signs
Temp Pulse Resp BP Pulse Ox
98.6 F 75 18 121/61 95
12/01/24 07:00 12/01/24 08:35 12/01/24 07:00 12/01/24 08:35 12/01/24 07:00
I&O
11/30/24 12/01/24 12/02/24
06:59 06:59 06:59
Intake Total 1440 / 1440 400 / 400
Balance 1440 / 1440 400 / 400
--- NOTE | 2024-12-01 15:06 | ITS.CL.PACE ---
Customer Engagement Representative - Pacemaker Implant
Pacemaker Implant
Procedure Report:
Date of Procedure: December 01, 2024.
Procedure: Pacemaker Implantation. Left upper extremity venogram.
Indication:The pacemaker is for the treatment of nonreversible symptomatic bradycardia due to second degree atrioventricular block (recurrent syncope, RBBB, documented Mobit II second degree AV block).
Performing physician: Agustin Hogan MD, [facility].
Implants:
Pulse Generator: Medtronic; Model# W1DR01; Serial# [id number].
RA Lead: Medtronic; Model# 5076-45cm; Serial# [id number].
RV Lead: Medtronic; Model# 3830-69cm; Serial# [id number].
Technique: A time out was performed. A 10 mL upper extremity venogram demonstrated patent left/right axillary and subclavian veins. The procedure site was identified. The patient was anesthetized by the anesthesia service. Preoperative cefazolin was
administered. The patient was prepped and draped in the usual fashion. Local anesthetic was applied to the left prepectoral subcutaneous tissue. A 3 inch incision was made along the left deltopectoral groove. Dissection was carried to the fascia.
The left cephalic vein was not isolated in what appeared to be the deltopectoral groove. The left axillary vein was accessed with a single percutaneous micro- punctures without difficulty. A 7 Fr introducer was placed to allow a second 0.35 J wires
to be advanced. The leads were introduced with hemostatic peel away introducer sheaths. The RV lead was placed using utilizing the Tip or Skip His delivery catheter ([id number]) that was advanced to the left bundle area as confirmed by fluoroscopy in the
MARTINIQUAIS and NGUYEN projections. The lead tip was advanced. PVC morphology was reviewed. When a satisfactory location was identified (W pattern observed) the lead was screwed into position with serial turns. Septal engagement was confirmed with gentle
torque applied to the guide sheath. After each series of turns (2-3) unipolar sensed morphology and impedance, and paced morphology of V1 was analyzed. The lead was further advanced until satisfactory morphology and electrical characteristics were
confirmed. The RV lead was placed in the second location evaluated. The long guiding sheath was cut and removed from the RV without change in lead position, impedance, sensing, or capture. The ventricular lead was secured to the pectoralis muscle
and fascia with two 0-silk sutures. The atrial lead was placed in the right atrial appendage. 8 volt pacing from each lead did not capture the diaphragm. The atrial leads was secured to the pectoralis muscle and fascia. A subcutaneous pocket was
created with blunt dissection and Bovie cautery. Hemostasis was excellent. The leads were appropriately attached to the device. The pocket was irrigated with antibiotic solution. The device and leads were placed in the pocket. The incision was
closed in three layers with absorbable suture. Steri-strips and a silver impregnated dressing were placed. Estimated blood loss was 5 ml. There were no complications. Fluoroscopy time 3.6 minutes and DAP 0.821 GyCM2. The device was then
interrogated after skin closure.
Lead Analysis:
RA lead: P: 1.4 mV; Threshold: 1.25 V @ 0.4 ms; Impedance: 551 ohms.
RV lead (bipolar): R: 0.5 mV; Threshold: 684 V @ 0.4 ms; Impedance: 684 ohms.
Paced QRS characteristics: V1 has qr morphology and measures 115 ms in duration, LVAT (stim to peak V5/V6) is 78 ms, and R peak V1 to R peak V6 is 10 ms.
RV lead has a similar morphology bipolar or unipolar and at high or low output.
Final Programming: MVP (AAIR to DDDR) 60-130 bpm.
Conclusion: Uncomplicated Medtronic pacemaker implant. The pacing system is MRI conditional.
Recommendation: Routine post pacemaker care.
cc: Maximiliano Rhodes MD and JACK Meredith ([facility]).
[2024-12-01] MEDS: LOVENOX 40 MG SC (17:21)
[2024-12-01] MEDS: ANCEF 5 IV (17:22)
--- NOTE | 2024-12-01 17:45 | CM ---
Alert awake oriented patient who lives with her Chacho lives in a1 story home .She is assisted in all activities of daily living.Offered VN she requested [facility] Spoke with Chacho . Pt had a pas maker placed today . Pt had l knee
replacement done 11/21/24.
Never had VN/SNF
Pharmacy [facility]
PCP Dr Strauss
PLAN Home with [facility]
--- NOTE | 2024-12-01 18:42 | PTCARENOTE ---
Pt returned to floor from labourers post pacemaker placement. Post op VSS. pt oriented x2-3, and forgetful. Site covered with steri-strips and aquaseal is clean dry and intact. telemetry monitoring ongoing. Pt informed of bedrest and need for arm
immobilizer. Discussed POC with @bedside and pt. Call palm within reach. POC ongoing.
[2024-12-02] VITALS (7 sets, daily range): BP systolic 104–140; BP diastolic 42–69
[2024-12-02] MEDS: ANCEF 5 IV (02:05)
[2024-12-02] MEDS: SYNTHROID 125 MCG PO (05:31)
[2024-12-02 05:45] LABS: Hematocrit 31.9 % (37.0-47.0); Hemoglobin 10.6 g/dL (12.0-16.0); Mean Corp Hgb Conc. 33.2 g/dL (33.0-37.0); Mean Corpuscular Hgb 31.6 pg (27.0-31.0); Mean Corpuscular Volume 95.2 fL (81.0-99.0); Mean Platelet Volume 8.8 fL (7.4-10.4); Platelet Count 227 10^3/uL (130-400); Red Blood Cell Count 3.35 10^6/uL (4.20-5.40); Red Cell Dist. Width 13.4 % (11.5-14.5); White Blood Cell Count 4.9 10^3/uL (4.8-10.8)
[2024-12-02 06:04] LABS: Blood Urea Nitrogen 23 mg/dl (7-17); Calcium 8.3 mg/dl (8.4-10.2); Carbon Dioxide 23 mmol/L (22-30); Chloride 107 mmol/L (98-107); Estimated Creatinine Clearance 72 ml/min; Glucose 100 mg/dl (70-99); Magnesium 2.2 mg/dl (1.6-2.3); Sodium 134 mmol/L (135-145); eGFR > 60.00
--- NOTE | 2024-12-02 08:25 | W.PN.CD ---
Addendum entered and electronically signed by Godwin Bronson MD 12/02/24 14:54:
I saw and examined the patient.
The PRODUCT SAFETY CONSULTANT's note was reviewed and I agree with the note.
Comment:
69-year-old female who presents with syncope found to have Mobitz type II status post pacemaker. Differential diagnosis for syncope also includes orthostatic hypotension and long history of vasovagal syncope. She is doing well after her pacemaker
yesterday. Has not been up and walking around.
Physical exam with RRR, no murmurs, no lower extremity edema, clear lungs. Pacemaker site looks good.
I encouraged her to get up and walk around to ensure she is not lightheaded/dizzy before she is discharged.
Her home metoprolol 25 mg twice daily should be resumed for SVT
Continue home losartan and Lasix. Hydralazine held for concern for orthostasis. She is normotensive.
We will see her in the office in 1 week for follow-up.
Original Note:
Today's Communication / Plan
-
reviewed L arm restrictions and PPM site care instructions
resume metoprolol for SVT
f/u as scheduled in the office in 1 week
Impression / Plan
-
Syncope:
-patient has long history of syncope.
-.monitor evidence for likely second degree mobitz II heart block. Aricept held. BB has been held. Some brief SVT, NSVT noted. s/p PPM. CXR no penumothorax.
SVT:
- resume metoprolol
HTN:
-on multiple meds as OP. Would benefit from metoprolol given SVT. Reduce hydralazine if needed based on BP control.
-monitor for orthostasis BP's here stable.
Fever:
-improved
-work up negative .
Dementia:
-mild, recent diagnosis
Physical Exam
Vital Signs/Labs
Vital Signs
Temp Pulse Resp BP Pulse Ox
98.0 F 82 16 121/59 95
12/02/24 07:30 12/02/24 07:30 12/02/24 07:30 12/02/24 07:30 12/02/24 07:30
12/01/24 12/02/24 12/03/24
06:59 06:59 06:59
Actual Weight 92.306 kg
12/02/24 05:10
12/02/24 05:10
PT 13.4 Sec (11.4-14.6) 11/29/24 07:00
INR 0.99 11/29/24 07:00
Magnesium 2.2 mg/dl (1.6-2.3) 12/02/24 05:10
TSH 1.25 uIU/ml (0.47-4.68) 11/30/24 05:09
Physical Exam
Constitutional: No acute distress
Cardiovascular: Rhythm & rate is regular, Pedal edema is absent and S1S2 is normal
Respiratory: Respiratory effort normal
Neuro/Psych: AO x 3
Other: Skin (abrasions nose and forehead) and Cardiac Device Site (L pectoral incision no hematoma, dressing intact)
Data Reviewed
-
Date of Service: December 02, 2024
EKG: Tracing Personally Visualized and interpreted (NSR 79 bpm, RBBB) and Other (Tele: NSR 80-90's )
X-Ray/CT/US/MRI/NUC/PET: Report Reviewed by me (CXR: no pneumothorax. )
Labs: Labs Reviewed by me
[2024-12-02] MEDS: PRAVACHOL 40 MG PO (08:31)
[2024-12-02] MEDS: COZAAR 50 MG PO ×2 (08:31→20:35)
[2024-12-02] MEDS: LASIX 20 MG PO (08:31)
[2024-12-02] MEDS: APRESOLINE 50 MG PO (08:31)
[2024-12-02 14:19] LABS: Cortisol, Random 7.4 ug/dl
--- NOTE | 2024-12-02 14:36 | CM ---
Spoke with [facility] clinical received and benefits run .Milagros said pts cost would be $722.00 weekly charge.
ID indicated pt home with IV antibiotics.
Spoke with and pt in room . Explained option Either home with [facility] and [facility] VS Out Patient infusion center .
Explained to pt that CM will need to contact out pt Infusion center to brush medicine and find out if spot available.
PLAN Home with [facility] VS out patient infusion center
--- NOTE | 2024-12-02 14:51 | W.PN.HOSP.TC ---
Today's Communication/Plan
-
Hold hydralazine and Lasix
Continue to follow orthostatic blood pressure
Apply OSIEL stockings
Assessment / Plan
Assessment / Plan
69-year-old female status post left knee arthroplasty 1 week ago presents with a fall at home she had a syncopal/presyncopal episodes and a fever of 100.8. Knee appears intact without any swelling no dehiscence.
CT of the chest-no PE. No pneumonia
Knee x-ray-left knee arthroplasty anatomy position. No dislocation. Possible small suprapatellar effusion
Head CT-no acute abnormality. No facial bone fracture. Minimal chronic paranasal sinus inflammatory changes.
Echo 11/25/2024-EF 65 to 70%. Normal RV size and function.
# Syncope x 2 since knee replacement on November 21, 2024
Tachybradycardia syndrome with heart block
Aricept discontinued
Beta-blockers on hold
S/p pacemaker insertion yesterday.
# Low-grade fever
Source unclear
CT chest unremarkable, COVID serology negative and UA unremarkable
Left leg without any evidence of cellulitis
Blood culture sent-negative so far
Procalcitonin normal
Ultrasound without any DVT
Infectious disease consulted- appreciated.
#Orthostatic hypotension-she denies any symptoms but a pretty significant drop.
According to the patient and her apparently the dose of hydralazine was increased from 25 to 50 mg presurgery. Blood pressure has been mostly under goal here. Will discontinue hydralazine for now and watch her blood pressure. In meantime
check random cortisol. Apply sequential teds. Patient was advised caution when she gets up from chairs of the beds. Continue with physical therapy.
# Status post knee replacement on December 18, 2024
Pain control
PT after pacemaker
DVT prophylaxis-Lovenox
[facility] orthopedics on-call made aware about the patient's admission.
# Anemia likely secondary to acute blood loss postsurgery
# Contusion of face from fall and syncope -no facial bone fracture
# Hypertension-continue losartan
Hold hydralazine
Hold Lasix
continue beta-blockers
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
# Hyperlipidemia-continue statin
# Dementia-Aricept on hold
# History of laminectomy L3-L5
# DVT prophylaxis-Lovenox. Patient was on aspirin 325 mg daily as outpatient. Resume this at discharge
# Full code
Discussed with at bedside
Part of this note was created using voice recognition system. Occasional wrong word or��sound alike� substitutions may have inadvertently occurred due to the inherent limitations of voice recognition software. If noted kindly bring it to my
attention for correction.
Anticipated Discharge: Within 24 hours
Subjective/Interval History
-
Date of Service: December 02, 2024
Voicing no specific complaint.
Denies any dizziness or lightheadedness to me today. She does have orthostatic drop in blood pressure.
PT cleared her for home with home care but is doubtful if she can do things by herself yet.
Objective Data
-
Labs:
Laboratory Results
12/02/24
05:10
WBC 4.9
Hgb 10.6 L
Hct 31.9 L
Plt Count 227
Sodium 134 L
Potassium 4.0
Chloride 107
Carbon Dioxide 23
BUN 23 H
Creatinine 0.8
Glucose 100 H
Calcium 8.3 L
Vital Signs:
Vital Signs
Temp Pulse Resp BP Pulse Ox
98.4 F 96 16 110/58 99
12/02/24 11:30 12/02/24 11:30 12/02/24 11:30 12/02/24 11:30 12/02/24 11:30
I&O
12/01/24 12/02/24 12/03/24
06:59 06:59 06:59
Intake Total 400 / 400 480 / 480
Output Total 250 / 250
Balance 400 / 400 230 / 230
Physical Exam
-
General: No Apparent Distress
Respiratory: Clear to Auscultation and Non Labored Respirations; Negative Accessory Resp Muscle Use
Cardiac: Regular Rhythm and S1/S2
GI: Soft
Neuro: AO x 3
Psych: Calm
Data Reviewed
-
Labs: Labs Reviewed by me
--- NOTE | 2024-12-02 15:00 | W.PN.ID1 ---
Date of Service
Date of Service: December 02, 2024
Today's Communication
Sign off
Assessment / Plan
S/p fall
Fever; resolved
Arrhythmia; for tentative PPM placement today
S/P Left TKA; area looks good
Hypothyroidism
HLD
Spinal stenosis
Herniated L5-S1 disc
HTN
Obesity (BMI ~ 35)
Recommendations:
Blood cultures negative x 72 hours.
MRSA screen negative.
Patient without ongoing fever. White count normal.
Patient doing well s/p PPM placement.
Nothing further to add from an Infectious Diseases standpoint.
Will see again at your request.
Chief Complaint
-: Fever
Subjective / Review of Systems
Patient seen and examined. Underwent successful implantation of pacemaker yesterday. No recurrence of fevers.
Vital Signs / Physical Exam
Vital Signs
Vital Signs
Temp Pulse Resp BP Pulse Ox
98.4 F 96 16 110/58 99
12/02/24 11:30 12/02/24 11:30 12/02/24 11:30 12/02/24 11:30 12/02/24 11:30
Physical Exam
Constitutional: No Acute Distress, Comfortable and Non-toxic
Eyes: Sclera Anicteric
Pulmonary: Non Labored
Gastrointestinal: Non Distended
Wound: Other (PPM site dressed. No surrounding erythema.)
Neurological: Awake and Alert
Psychological: Calm
Objective Data
Lab Data
Lab Results
12/02/24 05:10
12/02/24 05:10
ESR 18 mm/hour (0-20) 11/29/24 07:01
PT 13.4 Sec (11.4-14.6) 11/29/24 07:00
INR 0.99 11/29/24 07:00
Estimated Creat Clear 72 ml/min 12/02/24 05:10
Lactic Acid 0.8 mmol/L (0.7-2.0) 11/29/24 04:01
Lactic Acid Cancelled 11/29/24 04:01
Total Bilirubin 1.0 mg/dl (0.2-1.3) 11/29/24 04:02
AST 32 U/L (14-36) 11/29/24 04:02
ALT 31 U/L (0-35) 11/29/24 04:02
Alkaline Phosphatase 63 U/L (38-126) 11/29/24 04:02
C-Reactive Protein 15.00 mg/L (0.0-10.00) H 11/29/24 07:01
Most recent labs reviewed.
Micro Results:
11/29/24 04:30 Blood Culture - Preliminary
Blood/Venous No Growth in 72 hours- Final report to follow
11/29/24 04:02 Blood Culture - Preliminary
Blood/Venous No Growth in 72 hours- Final report to follow
11/29/24 12:34 MRSA Screen - Final
Nose No Methicillin Resistant Staphylococcus aureus isolated.
11/29/24 07:01 Influenza Types A & B (JEANINE) - Final
Nasal Swab Negative for Influenza A & B, NAAT
Negative results must be combined with clinical observations
and patient history.
Nucleic Acid Amplification test (NAAT)performed on the
[employer] platform.
Imaging:
11/30/2024 CT chest: No evidence of pulmonary embolism. No significant abnormalities identified in the chest. Please see full dictation for additional detail.
[2024-12-02] MEDS: LOVENOX 40 MG SC (17:09)
[2024-12-02] MEDS: LOPRESSOR 25 MG PO (20:35)
[2024-12-03] VITALS (8 sets, daily range): BP systolic 104–147; BP diastolic 52–81; PULSE 87–95; O2SAT 94
[2024-12-03] MEDS: SYNTHROID 125 MCG PO (05:39)
[2024-12-03] MEDS: PRAVACHOL 40 MG PO (08:15)
[2024-12-03] MEDS: LOPRESSOR 25 MG PO ×2 (08:16→19:51)
[2024-12-03] MEDS: COZAAR 50 MG PO ×2 (08:16→19:51)
--- NOTE | 2024-12-03 14:58 | W.PN.HOSP.TC ---
Today's Communication/Plan
-
DC planning
Assessment / Plan
Assessment / Plan
69-year-old female status post left knee arthroplasty 1 week ago presents with a fall at home she had a syncopal/presyncopal episodes and a fever of 100.8. Knee appears intact without any swelling no dehiscence.
CT of the chest-no PE. No pneumonia
Knee x-ray-left knee arthroplasty anatomy position. No dislocation. Possible small suprapatellar effusion
Head CT-no acute abnormality. No facial bone fracture. Minimal chronic paranasal sinus inflammatory changes.
Echo 11/25/2024-EF 65 to 70%. Normal RV size and function.
# Syncope x 2 since knee replacement on November 21, 2024
Tachybradycardia syndrome with heart block
Aricept discontinued
Beta-blockers resumed
S/p pacemaker insertion 12/01
# Low-grade fever
Source unclear
Resolved
CT chest unremarkable, COVID serology negative and UA unremarkable
Left leg without any evidence of cellulitis
Blood culture sent-negative so far
Procalcitonin normal
Ultrasound without any DVT
Infectious disease consulted- appreciated.
#Orthostatic hypotension-she denies any symptoms but a pretty significant drop.Now resolved.
According to the patient and her apparently the dose of hydralazine was increased from 25 to 50 mg presurgery. Blood pressure has been mostly under goal here.
Discontinued hydralazine and asked for Lasix as her weight was stable. Blood pressure still remains under goal. No orthostatic hypotension today. She is got sequential teds on. Cortisol does not suggest adrenal insufficiency.
Advised her to keep away from hydralazine Lasix as needed for weight gain.
# Status post knee replacement on December 18, 2024
Pain control
PT after pacemaker
DVT prophylaxis-Lovenox
[facility] orthopedics on-call made aware about the patient's admission.
# Anemia likely secondary to acute blood loss postsurgery
# Contusion of face from fall and syncope -no facial bone fracture
# Hypertension-continue losartan
DC hydralazine
DC Lasix
continue beta-blockers
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
# Hyperlipidemia-continue statin
# Dementia-Aricept on hold
# History of laminectomy L3-L5
# DVT prophylaxis-Lovenox. Patient was on aspirin 325 mg daily as outpatient. Resume this at discharge
# Full code
Discussed with on phone-they are worried about her ambulatory status. Explained to them the physical therapy recommendations. Discussed with case management who is going to set up visiting nurses and therapy as an outpatient starting
tomorrow as show family hoping to take it tomorrow after the services are set up.
Part of this note was created using voice recognition system. Occasional wrong word or��sound alike� substitutions may have inadvertently occurred due to the inherent limitations of voice recognition software. If noted kindly bring it to my
attention for correction.
Anticipated Discharge: Within 24 hours
Subjective/Interval History
-
Date of Service: December 03, 2024
Voices no specific complaints.
Denying any specific complaint. Denies any dizziness.
Did better with PT yesterday. No orthostatic hypotension noted.
Denies any nausea or vomiting. No fever or chills. No shortness of breath or chest pain.
Objective Data
-
Vital Signs:
Vital Signs
Temp Pulse Resp BP Pulse Ox
98.0 F 87 18 104/56 94
12/03/24 11:45 12/03/24 11:45 12/03/24 11:45 12/03/24 11:45 12/03/24 11:45
I&O
12/02/24 12/03/24 12/04/24
06:59 06:59 06:59
Intake Total 480 / 480 1280 / 1280
Output Total 250 / 250 1000 / 1000
Balance 230 / 230 280 / 280
Physical Exam
-
General: Comfortable
Respiratory: Clear to Auscultation and Non Labored Respirations; Negative Accessory Resp Muscle Use
Cardiac: Regular Rhythm and S1/S2
Neuro: AO x 3
Psych: Calm
[2024-12-03] MEDS: TYLENOL 650 MG PO ×2 (15:46→19:52)
--- NOTE | 2024-12-03 16:10 | CM ---
Spoke with pt and dgt Mariam in room.
IMM reviewed and dgt signed and is on chart.
Pt is forgetful.
Pt is staring with PT [facility] which recommended VN
Offered VN . [facility] was picked .
Pt is newly postop from knee replaced and pace maker placed this admission.
PLAN Home with [facility]
[2024-12-03] MEDS: LOVENOX 40 MG SC (17:10)
[2024-12-04] MEDS: TYLENOL 650 MG PO ×2 (00:23→14:37)
[2024-12-04 03:00] VITALS: BP 129/70
[2024-12-04] MEDS: SYNTHROID 125 MCG PO (05:09)
[2024-12-04] MEDS: COZAAR 50 MG PO (07:45)
[2024-12-04] MEDS: PRAVACHOL 40 MG PO (07:46)
[2024-12-04] MEDS: LOPRESSOR 25 MG PO (07:46)
[2024-12-04 08:00] VITALS: BP 130/71
[2024-12-04 11:14] VITALS: BP 124/74
[2024-12-04 14:47] VITALS: BP 119/64
--- NOTE | 2024-12-04 15:04 | W.PN.HOSP.TC ---
Addendum entered and electronically signed by Jarek Mock MD 12/04/24 15:20:
OK to resume Aricept per Cards
Original Note:
Today's Communication/Plan
-
discharge
Assessment / Plan
Assessment / Plan
69-year-old female status post left knee arthroplasty 1 week ago presents with a fall at home she had a syncopal/presyncopal episodes and a fever of 100.8. Knee appears intact without any swelling no dehiscence.
CT of the chest-no PE. No pneumonia
Knee x-ray-left knee arthroplasty anatomy position. No dislocation. Possible small suprapatellar effusion
Head CT-no acute abnormality. No facial bone fracture. Minimal chronic paranasal sinus inflammatory changes.
Echo 11/25/2024-EF 65 to 70%. Normal RV size and function.
Cardiovascular system S1-S2 appreciated
Chest clear to auscultation
Pacemaker site stable
Abdomen soft and nontender
No pedal edema
# Syncope x 2 since knee replacement on November 21, 2024
Tachybradycardia syndrome with heart block
Aricept discontinued
Beta-blockers resumed
S/p pacemaker insertion 12/01
# Low-grade fever
Source unclear
Resolved
CT chest unremarkable, COVID serology negative and UA unremarkable
Left leg without any evidence of cellulitis
Blood culture sent-negative so far
Procalcitonin normal
Ultrasound without any DVT
Infectious disease consulted- appreciated.
#Orthostatic hypotension-she denies any symptoms but a pretty significant drop.Now resolved.
According to the patient and her apparently the dose of hydralazine was increased from 25 to 50 mg presurgery. Blood pressure has been mostly under goal here.
Discontinued hydralazine and asked for Lasix as her weight was stable. Blood pressure still remains under goal. No orthostatic hypotension today. She is got sequential teds on. Cortisol does not suggest adrenal insufficiency.
Advised her to keep away from hydralazine Lasix as needed for weight gain.
# Status post knee replacement on December 18, 2024
Pain control
PT after pacemaker
DVT prophylaxis-Lovenox
[facility] orthopedics on-call made aware about the patient's admission.
# Anemia likely secondary to acute blood loss postsurgery
# Contusion of face from fall and syncope -no facial bone fracture
# Hypertension-continue losartan
Stopped hydralazine
DC Lasix
continue beta-blockers
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
# Hyperlipidemia-continue statin
# Dementia-Aricept on hold
# History of laminectomy L3-L5
# DVT prophylaxis-Lovenox. Patient was on aspirin 325 mg daily as outpatient. Resume this at discharge
# Full code
D/W RN
D/W Daughter at bed side
D/W Cardiology
More than 30 minutes spent in discharge including
Final examination of the patient
Summarizing hospital stay
Instructions for continuing care to all relevant caregivers
Preparation of discharge records, prescriptions, and referral forms
Total time spent (in minutes): 35 min
Part of this note was created using voice recognition system. Occasional wrong word or��sound alike� substitutions may have inadvertently occurred due to the inherent limitations of voice recognition software. If noted kindly bring it to my
attention for correction.
Anticipated Discharge: Today
Subjective/Interval History
-
Date of Service: December 04, 2024
Objective Data
-
Vital Signs:
Vital Signs
Temp Pulse Resp BP Pulse Ox
99.0 F 85 17 119/64 96
12/04/24 14:47 12/04/24 14:47 12/04/24 14:47 12/04/24 14:47 12/04/24 14:47
I&O
12/03/24 12/04/24 12/05/24
06:59 06:59 06:59
Intake Total 1280 / 1280 600 / 600
Output Total 1000 / 1000
Balance 280 / 280 600 / 600
--- NOTE | 2024-12-04 15:22 | W.DS.TRANS ---
Addendum entered and electronically signed by Jarek Mock MD 12/04/24 16:28:
Dictation- [id number]
Original Note:
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
-
Discharge Instructions:
Discharge Diagnosis/Procedures Syncope with type II heart block status post
pacemaker implant 12/01;
Orthostatic hypotension
Hypertension on medication
High cholesterol
Diet 2 Gram Sodium
Activity As tolerated
Driving Restrictions No driving for 1 week
Bathing Restrictions None
Other Services VN,PT
Specialty Instructions Weigh Daily
Instructions:
Stand-Alone Forms: DC Inst - Implanted Device
Changes to Home Medications: Yes
Discharge Medications:
DC Medications w/original date entered in [facility]
aspirin 325 mg tablet 325 mg PO DAILY Heart Disease/Condition 11/29/24
levothyroxine 125 mcg tablet 125 mcg PO DAILY Thyroid 11/29/24
losartan 50 mg tablet 50 mg PO BID Blood Pressure 11/29/24
metoprolol tartrate 25 mg tablet 25 mg PO BID Blood Pressure 11/29/24
oxycodone 5 mg tablet 5 mg PO Q6HPRN PRN severe pains 11/29/24
pravastatin 40 mg tablet 40 mg PO DAILY High Cholesterol 11/29/24
furosemide 20 mg tablet 20 mg PO DAILY PRN Blood Pressure #0 tabs 12/03/24
donepezil 5 mg tablet (Aricept) 5 mg PO DAILY cognition #30 tabs 12/04/24
Home Medication Changes
hydralazine stopped
Pending Results: No
--- NOTE | 2024-12-04 15:51 | CM ---
entered order for discharge.
dgt Mariam in room will drive her home.
PT eval which recommended VN
Offered VN .Referral for [facility] placed .
Pt is newly postop from knee replaced and pace maker placed this admission.
PLAN Home with [facility]
== END 2024-12-04 16:25 | disposition home health service (06) | DRG 243 ==
LOC: 3 WEST ACU 07:31
PROVIDERS: Internal Medicine Cardiovascular Disease; ADMITTING PHYSICIAN Internal Medicine; ATTENDING PHYSICIAN Hospitalist; CONSULT PHYSICIAN Internal Medicine Cardiovascular Disease; EMERGENCY PHYSICIAN Student in an Organized Health Care Education/Training Program; FAMILY PHYSICIAN Nurse Practitioner Adult Health; OTHER PHYSICIAN Internal Medicine Infectious Disease
PROC: 0JH606Z Insertion of Pacemaker, Dual Chamber into Chest Subcutaneous Tissue and Fascia, Open Approach (ICD-10-PCS; 2024-11-29)
PROC: 02HK3JZ Insertion of Pacemaker Lead into Right Ventricle, Percutaneous Approach (ICD-10-PCS; 2024-11-29)
PROC: 02H63JZ Insertion of Pacemaker Lead into Right Atrium, Percutaneous Approach (ICD-10-PCS; 2024-11-29)
DX: I44.1 Atrioventricular block, second degree (principal); D62 Acute posthemorrhagic anemia; I95.1 Orthostatic hypotension; E78.00 Pure hypercholesterolemia, unspecified; S00.83XA Contusion of other part of head, initial encounter; W19.XXXA Unspecified fall, initial encounter; I49.5 Sick sinus syndrome; I11.9 Hypertensive heart disease without heart failure; Z79.899 Other long term (current) drug therapy; Z79.82 Long term (current) use of aspirin; Z79.890 Hormone replacement therapy; Z87.891 Personal history of nicotine dependence; Z88.5 Allergy status to narcotic agent; Z96.652 Presence of left artificial knee joint; E03.9 Hypothyroidism, unspecified; F03.A0 Unspecified dementia, mild, without behavioral disturbance, psychotic disturbance, mood disturbance, and anxiety; I45.10 Unspecified right bundle-branch block; I47.10 Supraventricular tachycardia, unspecified; I47.19 Other supraventricular tachycardia; Z11.52 Encounter for screening for COVID-19
CPT/HCPCS: 33208; 70450; 70486; 71045; 71046; 71275; 73130; 73564; 80048; 80053; 81003; 81015; 82533; 83605; 83735; 84145; 84443; 84484; 85025; 85027; 85379; 85610; 85652; 86140; 87040; 87070; 87502; 87811; 93005; 93306; 93970; 97116; 97163; 97167; 97530; 97535; 99285; 99406; C1769; C1785; C1887; C1892; C1898; Q9967

== ENCOUNTER 2025-01-16 09:39 | Outpatient (RCR) | payer MEDICARE, OTHER, SELFPAY | END 2025-01-16 23:59 | disposition home or self-care (01) | LOC: RPT 09:39 | PROVIDERS: ATTENDING PHYSICIAN Specialist; FAMILY PHYSICIAN Nurse Practitioner Adult Health | DX: Z47.1 Aftercare following joint replacement surgery (principal); Z73.6 Limitation of activities due to disability; R26.89 Other abnormalities of gait and mobility; M25.562 Pain in left knee; M62.81 Muscle weakness (generalized); R47.01 Aphasia; Z96.652 Presence of left artificial knee joint | CPT/HCPCS: 97110; 97162 ==

== ENCOUNTER 2025-02-02 07:36 | Outpatient (RCR) | payer MEDICARE, OTHER, SELFPAY | END 2025-02-02 23:59 | disposition home or self-care (01) | LOC: RST 07:36 | PROVIDERS: ATTENDING PHYSICIAN Nurse Practitioner; FAMILY PHYSICIAN Nurse Practitioner Adult Health | DX: R47.01 Aphasia (principal); G31.01 Pick's disease; F02.80 Dementia in other diseases classified elsewhere, unspecified severity, without behavioral disturbance, psychotic disturbance, mood disturbance, and anxiety | CPT/HCPCS: 92507; 92523 ==

== ENCOUNTER 2025-02-14 14:13 | Outpatient (RCR) | payer MEDICARE, OTHER, SELFPAY | END 2025-02-14 23:59 | disposition home or self-care (01) | LOC: RPT 14:13 | PROVIDERS: ATTENDING PHYSICIAN Specialist; FAMILY PHYSICIAN Nurse Practitioner Adult Health | DX: Z47.1 Aftercare following joint replacement surgery (principal); Z73.6 Limitation of activities due to disability; R26.89 Other abnormalities of gait and mobility; M25.562 Pain in left knee; M62.81 Muscle weakness (generalized); R47.01 Aphasia; Z96.652 Presence of left artificial knee joint | CPT/HCPCS: 97010; 97110; 97112; 97140; 97530 ==

== ENCOUNTER 2025-02-23 13:49 | Outpatient (RCR) | payer MEDICARE, OTHER, SELFPAY | END 2025-03-01 14:21 | disposition home or self-care (01) | LOC: RPT 13:49 | PROVIDERS: ATTENDING PHYSICIAN Specialist; FAMILY PHYSICIAN Nurse Practitioner Adult Health | DX: Z47.1 Aftercare following joint replacement surgery (principal); Z73.6 Limitation of activities due to disability; R26.89 Other abnormalities of gait and mobility; M25.562 Pain in left knee; M62.81 Muscle weakness (generalized); R47.01 Aphasia; Z96.652 Presence of left artificial knee joint | CPT/HCPCS: 97110; 97112 ==

== ENCOUNTER 2025-03-13 11:18 | Outpatient (RCR) | payer MEDICARE, OTHER, SELFPAY | END 2025-03-13 23:59 | disposition home or self-care (01) | LOC: RST 11:18 | PROVIDERS: ATTENDING PHYSICIAN Nurse Practitioner; FAMILY PHYSICIAN Nurse Practitioner Adult Health | DX: R47.01 Aphasia (principal); G31.01 Pick's disease; F02.80 Dementia in other diseases classified elsewhere, unspecified severity, without behavioral disturbance, psychotic disturbance, mood disturbance, and anxiety | CPT/HCPCS: 92507 ==

== ENCOUNTER 2025-04-11 07:41 | Outpatient (RCR) | payer MEDICARE, OTHER, SELFPAY | END 2025-04-11 23:59 | disposition home or self-care (01) | LOC: RST 07:41 | PROVIDERS: ATTENDING PHYSICIAN Nurse Practitioner; FAMILY PHYSICIAN Nurse Practitioner Adult Health | DX: R47.01 Aphasia (principal); G31.01 Pick's disease; F02.80 Dementia in other diseases classified elsewhere, unspecified severity, without behavioral disturbance, psychotic disturbance, mood disturbance, and anxiety | CPT/HCPCS: 92507 ==

== ENCOUNTER 2025-05-09 08:33 | Outpatient (RCR) | payer MEDICARE, OTHER, SELFPAY | END 2025-05-09 23:59 | disposition home or self-care (01) | LOC: RST 08:33 | PROVIDERS: ATTENDING PHYSICIAN Nurse Practitioner; FAMILY PHYSICIAN Nurse Practitioner Adult Health | DX: R47.01 Aphasia (principal); G31.01 Pick's disease; F02.80 Dementia in other diseases classified elsewhere, unspecified severity, without behavioral disturbance, psychotic disturbance, mood disturbance, and anxiety | CPT/HCPCS: 92507 ==

== ENCOUNTER 2025-06-06 08:25 | Outpatient (RCR) | payer MEDICARE, OTHER, SELFPAY | END 2025-06-06 23:59 | disposition home or self-care (01) | LOC: RST 08:25 | PROVIDERS: ATTENDING PHYSICIAN Nurse Practitioner; FAMILY PHYSICIAN Nurse Practitioner Adult Health | DX: R47.01 Aphasia (principal); G31.01 Pick's disease; F02.80 Dementia in other diseases classified elsewhere, unspecified severity, without behavioral disturbance, psychotic disturbance, mood disturbance, and anxiety | CPT/HCPCS: 92507 ==

== ENCOUNTER 2025-06-11 06:53 | Outpatient (RCR) | payer MEDICARE, OTHER, SELFPAY | END 2025-06-11 23:59 | disposition home or self-care (01) | LOC: RPT 06:53 | PROVIDERS: ATTENDING PHYSICIAN Nurse Practitioner Adult Health | DX: M62.89 Other specified disorders of muscle (principal); N81.10 Cystocele, unspecified; N32.81 Overactive bladder; N39.41 Urge incontinence; N39.3 Stress incontinence (female) (male); Z73.6 Limitation of activities due to disability | CPT/HCPCS: 97163; 97530 ==